=== PATIENT | female | born 1990 | race Caucasian/White ===

== ENCOUNTER → 2024-07-05 09:30 | Outpatient (CLI) | payer OTHER, SELFPAY ==
--- NOTE | 2024-07-05 09:31 | DI.ECHO.S_ITS ---
[facility] : : [address] : : [place] : : [id number] : : Phone: [phone] Echocardiogram Report + + :Name: POLO DELANEY Study Date: 07/05/2024 Height: 63 in : :[facility] ReadingLocation: Weight: 190 lb : : Gender: Female BSA: 1.9 m2 : :: 1990 Age: 33 yrs BP: 133/97 mmHg: :Reason For Study: INAPPROPRIATE SINUS TACHYCARDIA : :Ordering Physician: ABIGAIL DELGADO Performed By: Juanita Osorio : :Referring: ABIGAIL DELGADO : + + Interpretation Summary 1. The left ventricular contractility is normal. Estimate ejection fraction is greater than 60% with no segmental wall motion abnormalities. No LVH. Normal diastolic function. 2. The right ventricular contractility is normal. 3. All cardiac chambers are of normal size. 4. No significant valvular abnormalities. 5. No obvious intracardiac shunts. 6. No obvious intracardiac masses nor thrombi. 7. No hemodynamically significant pericardial effusion. 8. Low right-sided filling pressures. Conclusion: Normal biventricular function with no significant valvular nor structural abnormalities. Procedure: A two-dimensional transthoracic echocardiogram with color flow and Doppler was performed. The study quality was technically adequate. There is no prior echocardiogram noted for this patient. The patient was in sinus tachycardia with heart rates between 93-104 bpm during the exam. Left Ventricle: The left ventricle is normal in size and wall thickness. The ejection fraction is estimated to be 60-65%. Right Ventricle: The right ventricle is normal in size and function. Atria: The left atrial size is normal. Right atrial size is normal. There is no Doppler evidence for an interatrial shunt. Mitral Valve: The mitral valve leaflets appear to open well. There is no mitral annular calcification. There is no mitral valve stenosis. There is no mitral regurgitation noted. Aortic Valve: The aortic valve is trileaflet. The aortic valve opens well. There is no aortic valve stenosis. No aortic regurgitation is present. Tricuspid Valve: The tricuspid valve leaflets are thin and pliable. No tricuspid regurgitation. Pulmonary artery pressures cannot be estimated because of the lack of a measurable TR jet velocity. Pulmonic Valve: The pulmonic valve leaflets are thin and pliable; valve motion is normal. There is no pulmonic valvular regurgitation. Great Vessels: The aortic root is normal size. The dimensions of the ascending aorta are normal. The IVC is of normal diameter and collapses greater than 50% with a sniff. This suggests a low right atrial pressure of 3 mm Hg. Pericardium/ Pleura There is no pericardial effusion. There is no pleural effusion. MMode/2D Measurements & Calculations LVIDd: 4.2 cm LVOT diam: 1.9 cm LVIDs: 2.8 cm Ao root diam: 2.4 cm FS: 33.7 % asc Aorta Diam: 2.4 cm EPSS: 0.58 cm Ao Arch Diam (Prox Trans): 2.3 cm IVSd: 0.69 cm LVPWd: 0.57 cm LV cook. diameter/BSA (cm/m^2): 2.2 LV sys. diameter/BSA (cm/m^2): 1.5 LA A2 area: 11.2 cm2 RA long axis: 4.1 cm LA A4 area: 8.3 cm2 RA area: 7.8 cm2 LA length (vol): 3.9 cm RA vol: 12.7 ml LA vol: 20.1 ml RA : 6.7 ml/m2 LA vol index: 10.6 ml/m2 IVC diam: 1.2 cm RVD1 (basal): 3.0 cm RVD2 (mid): 2.0 cm TAPSE: 1.8 cm Doppler Measurements & Calculations Ao V2 max: 120.2 cm/sec LVOT Max Ino: 116.5 cm/sec Ao V2 mean: 81.0 cm/sec LV V1 max P.4 mmHg Ao max P.8 mmHg LV V1 VTI: 21.7 cm Ao mean P.9 mmHg ALCIDES(I,D): 2.9 cm2 Ao V2 VTI: 21.1 cm ALCIDES(V,D): 2.7 cm2 sev ratio: 1.0 ALCIDES indexed to BSA (cm^2/m^2): 1.5 MV E max ino: 60.9 cm/sec PA V2 max: 100.8 cm/sec MV A max ino: 73.4 cm/sec PA V2 mean: 69.0 cm/sec MV E/A: 0.83 PA mean P.2 mmHg Med Peak E' Ino: 9.9 cm/sec PA pr(Accel): 40.5 mmHg E/E' med: 6.2 Lat Peak E' Ino: 14.6 cm/sec E/E' lat: 4.2 E/e' average: 5.2 MV dec time: 0.16 sec MVA(VTI): 2.8 cm2 MV V2 mean: 65.6 cm/sec SV(LVOT): 60.3 ml MV mean P.0 mmHg MV V2 VTI: 21.7 cm Reading Physician:MAEGAN
== END ==
LOC: ECHO 09:31
PROVIDERS: PCP Physician Assistant; Referring Provider Internal Medicine; Visit Provider Internal Medicine
DX: I47.11 Inappropriate sinus tachycardia, so stated (principal); Z82.49 Family history of ischemic heart disease and other diseases of the circulatory system
CPT/HCPCS: 93306

== ENCOUNTER → 2024-08-30 15:04 | Outpatient (CLI) | payer OTHER, SELFPAY ==
--- NOTE | 2024-08-30 15:06 | DI.NM.S_ITS ---
PROCEDURE: NM EXERCISE TREADMILL NON NUC COMPARISON: None. INDICATIONS: inappropriate sinus tachycardia FINDINGS: Patient exercised per the standard [place] protocol. Total exercise time was 2 minutes and 12 seconds. Test was terminated secondary to hip and back pain. Maximal heart rate attained is 157 bpm which is 83% of max impacted heart rate. Maximum blood pressure [place] 138/[place] [address]. 4.6 METS. No chest pains voiced. No ischemic changes noted. No arrhythmias present but patient developed significant tachycardia at 1 minute into the stress phase. She remained tachycardic 7 minutes into recovery. IMPRESSION: 1. Nondiagnostic exercise treadmill stress test for ischemia due to inability to reach target heart rate. 2. Extremely poor exercise tolerance. 3. Findings suggestive of inappropriate sinus tachycardia. Dictated by: Edvin Delgado M.D. on 08/30/2024 at 16:44 Approved by: Edvin Delgado M.D. on 08/30/2024 at 16:47
== END ==
PROVIDERS: Referring Provider Internal Medicine; Visit Provider Internal Medicine
DX: I47.11 Inappropriate sinus tachycardia, so stated (principal); Z82.49 Family history of ischemic heart disease and other diseases of the circulatory system
CPT/HCPCS: 93017